=== PATIENT | male | born 1955 | race African-American/Black ===

== ENCOUNTER 2017-12-19 18:42 | Emergency (ER) | payer MEDICAID, OTHER ==
[~2017-12-19] VITALS: Ht 177.8 cm; Wt 61.0 kg
[~2017-12-19 18:42] MED LIST: ACET-3161 PO; LISI1TAB9 PO; METF500T4 PO; ROSU10TA PO
[2017-12-19] MEDS ORDERED: SODIUM CHLORIDE 0.9% 1,000 ML IV ONE (18:57)
[2017-12-19 20:30] LABS: BASOPHILS % 0.9 % (0.0-2.0); CHLORIDE 109 mEq/L (98-107); EOSINOPHILS % 2.4 % (0.0-5.0); HEMOGLOBIN. 10.9 g/dL (14.0-18.0); LYMPHOCYTES % 23.9 % (20.0-50.0); MEAN CORPUSCULAR HEMOGLOBIN 30.1 pg (28.0-32.0); MEAN CORPUSCULAR VOLUME 90.9 fL (80.0-94.0); MEAN PLATELET VOLUME 7.7 fl (7.4-10.4); MONOCYTES % 6.8 % (2.0-8.0); PLATELET 464 x1000/uL (130-400); RED BLOOD CELL COUNT 3.63 mill/uL (4.7-6.1); RED CELL DISTRIBUTION WIDTH 14.4 % (11.6-14.6)
[2017-12-19 20:31] LABS: INR 1.1
[2017-12-19 20:35] LABS: ETHANOL BLOOD < 10 mg/dL
[2017-12-19 21:58] VITALS: BP 110/80
== END 2017-12-19 22:25 | disposition home or self-care (01) ==
LOC: ER 19:14
DX: G43.A0 Cyclical vomiting, in migraine, not intractable (principal); E11.9 Type 2 diabetes mellitus without complications; F12.10 Cannabis abuse, uncomplicated; I10 Essential (primary) hypertension; Z98.890 Other specified postprocedural states
CPT/HCPCS: 36415; 71045; 80053; 83690; 84484; 85025; 85610; 93005; 96360; 96361; 99285; G0482

== ENCOUNTER 2018-03-31 11:14 | Inpatient (IN) | payer OTHER ==
[2018-03-31] VITALS (10 sets, daily range): BP systolic 62–130; BP diastolic 47–67
[~2018-03-31] VITALS: Ht 177.8 cm; Wt 60.8 kg
[~2018-03-31 11:14] MED LIST changes: -METF500T4 PO; +METF500T6 PO
[2018-03-31] MEDS ORDERED: MORPHINE SULFATE 4 MG/ML CPJ (NOT FOR IM USE) IV STA (12:21)
[2018-03-31] MEDS ORDERED: ONDANSETRON HCL 4MG/2ML VIAL IV STA (12:21)
[2018-03-31] MEDS ORDERED: SODIUM CHLORIDE 0.9% 1000ML BAG (SEPSIS BOLUS) IV ONE (12:30)
[2018-03-31] MEDS ORDERED: LEVOFLOXACIN 750MG PREMIX 150 ML IV ONE (12:30)
[2018-03-31 13:39] LABS: BASOPHILS % 0.8 % (0.0-2.0); EOSINOPHILS % 1.1 % (0.0-5.0); HEMATOCRIT. 29.8 % (42.0-52.0); HEMOGLOBIN. 9.9 g/dL (14.0-18.0); LYMPHOCYTES % 20.3 % (20.0-50.0); MEAN CORPUSCULAR HEMOGLOBIN 30.4 pg (28.0-32.0); MEAN CORPUSCULAR VOLUME 91.7 fL (80.0-94.0); MEAN PLATELET VOLUME 8.4 fl (7.4-10.4); MONOCYTES % 6.8 % (2.0-8.0); PLATELET 568 x1000/uL (130-400); RED BLOOD CELL COUNT 3.25 mill/uL (4.7-6.1); RED CELL DISTRIBUTION WIDTH 16.2 % (11.6-14.6)
[2018-03-31 13:40] LABS: CHLORIDE 110 mEq/L (98-107)
[2018-03-31 15:16] LABS: CLARITY URINE CLOUDY (CLEAR); COLOR URINE YELLOW (YELLOW); KETONES URINE NEGATIVE (NEGATIVE); LEUKOCYTE ESTERASE URINE 3+ (NEGATIVE); NITRITE URINE NEGATIVE (NEGATIVE); OCCULT BLOOD URINE 1+ (NEGATIVE); PH URINE 5.5 (4.5-8.0); PROTEIN URINE 1+ (NEGATIVE); SPECIFIC GRAVITY URINE 1.012 (1.005-1.030); UROBILINOGEN URINE 0.2 E.U./dL (0.2-1.0)
[2018-03-31] MEDS ORDERED: ASPIRIN 325MG EC TABLET PO ONE (16:15)
[2018-03-31 16:43] LABS: INR 1.2; PARTIAL THROMBOPLASTIN TIME 27.1 sec (23.4-31.0); PROTHROMBIN TIME 11.7 sec (9.1-11.1)
[2018-03-31] MEDS ORDERED: ACETAMINOPHEN 650MG/20.3ML UDC GT PRN (17:15)
[2018-03-31] MEDS ORDERED: ACETAMINOPHEN 650MG SUPP PR PRN (17:15)
[2018-03-31] MEDS ORDERED: GUAIFENESIN 200MG/10ML SUGAR FREE UDC PO PRN (17:15)
[2018-03-31] MEDS ORDERED: MAGNESIUM/ALUMINUM HYDROXIDE/SIMETHICONE 30ML UDC PO PRN (17:15)
[2018-03-31] MEDS ORDERED: DOCUSATE SODIUM 100MG CAPSULE PO PRN (17:15)
[2018-03-31 17:46] LABS: TOTAL IRON BINDING CAPACITY 290 ug/dL (250-450)
[2018-03-31 18:03] LABS: FOLIC ACID (FOLATE) SERUM 9.7 ng/mL (>5.38)
[2018-03-31] MEDS ORDERED: ONDANSETRON 4MG ODT PO PRN (18:05)
[2018-03-31] MEDS: SODIUM CHLORIDE 0.45% 1,000 ML IV SCH ×2 (19:04→22:04)
[2018-03-31] MEDS ORDERED: SODIUM CHLORIDE 0.9% 250 ML IV NR (23:00)
[2018-03-31] MEDS ORDERED: SODIUM CHLORIDE 0.9% 1,000 ML IV SCH (23:00)
[2018-03-31 23:02] LABS: BG BASE EXCESS -10.4 mmol/L (-2.0-2.0); BG CARBOXYHEMOGLOBIN 0.4 % (0.5-1.5); BG DEOXYHEMOGLOBIN 3.8 % (0.0-5.0); BG FRACTION INSPIRED OXYGEN 21; BG HCO3 ACT 15.7 mmol/L (22.0-26.0); BG METHEMOGLOBIN 0.2 % (0.0-1.5); BG OXYGEN SATURATION 96.2 % (92.0-98.5); BG OXYHEMOGLOBIN 95.6 % (94.0-97.0); BG PCO2 35.2 mmHg (35.0-45.0); BG PH 7.266 (7.350-7.450); BG PO2 87.1 mmHg (75.0-100.0); BG SAMPLE SITE RIGHT BRACHIAL; BG TOTAL HEMOGLOBIN 9.2 g/dL (12.0-18.0); BG VENT MODE ROOM AIR
[2018-03-31] MEDS ORDERED: DEXTROSE 50% WATER 50ML SYRINGE IV PRN (23:15)
[2018-03-31] MEDS: BLOOD SUGAR DIAGNOSTIC STRIP TEST SCH (23:30)
[2018-04-01] VITALS (48 sets, daily range): BP systolic 64–124; BP diastolic 16–76
[2018-04-01 00:48] LABS: CREATINE KINASE MB FRACTION 5.7 ng/mL (0.5-3.6)
[2018-04-01] MEDS ORDERED: POTASSIUM CHLORIDE 20MEQ/PACKET PO NR (01:30)
[2018-04-01] MEDS: PIPERACILLIN/TAZ 2.25G PREMIX 50 ML IV SCH ×3 (01:41→17:52)
[2018-04-01] MEDS: SODIUM CHL 0.45% + KCL 20MEQ/L 1,000 ML IV SCH ×5 (03:32→22:50)
[2018-04-01 05:41] LABS: BASOPHILS % 0.4 % (0.0-2.0); EOSINOPHILS % 2.3 % (0.0-5.0); HEMATOCRIT. 24.6 % (42.0-52.0); LYMPHOCYTES % 20.8 % (20.0-50.0); MEAN CORPUSCULAR HEMOGLOBIN 29.8 pg (28.0-32.0); MEAN PLATELET VOLUME 7.7 fl (7.4-10.4); MONOCYTES % 7.6 % (2.0-8.0); NEUTROPHILS % 68.9 % (40.0-76.0); PLATELET 454 x1000/uL (130-400); RED CELL DISTRIBUTION WIDTH 15.6 % (11.6-14.6)
[2018-04-01 05:52] LABS: AMMONIA 31 uMol/L (<32)
[2018-04-01 05:58] LABS: PHOSPHORUS 1.4 mg/dL (2.5-4.9)
[2018-04-01 06:00] LABS: T4 FREE 0.9 ng/dL (0.76-1.46)
[2018-04-01 06:03] LABS: CREATINE KINASE MB FRACTION 5.5 ng/mL (0.5-3.6)
[2018-04-01] MEDS: ACETAMINOPHEN 325MG TABLET PO PRN (06:11)
[2018-04-01] MEDS ORDERED: POTASSIUM CHLORIDE 20MEQ TABLET SR PO NR (07:15)
[2018-04-01] MEDS: INSULIN LISPRO 100 UNITS/ML SUBCUT SCH ×4 (07:34→21:00)
[2018-04-01] MEDS ORDERED: POTASSIUM PHOS,M-BASIC-D-BASIC 30 MMOL in SODIUM CHLORIDE 0.9% 500 ML IV NR (09:00)
[2018-04-01] MEDS: CITRIC ACID/SODIUM CITRATE SOLN 30ML UDC PO SCH ×3 (09:31→17:52)
[2018-04-01] MEDS: BLOOD SUGAR DIAGNOSTIC STRIP TEST SCH ×3 (12:50→21:00)
[2018-04-01 13:10] LABS: CHLORIDE 115 mEq/L (98-107)
[2018-04-01 13:17] LABS: PHOSPHORUS 1.6 mg/dL (2.5-4.9)
[2018-04-01 14:36] LABS: AMYLASE 114 IU/L (25-115)
[2018-04-01 15:13] LABS: *AMPHETAMINES SCREEN URINE NEGATIVE (NEGATIVE); *BARBITURATES SCREEN URINE NEGATIVE (NEGATIVE); *BENZODIAZEPINES SCREEN URINE NEGATIVE (NEGATIVE)
[2018-04-01 15:14] LABS: *COCAINE SCREEN URINE NEGATIVE (NEGATIVE); CANNABINOID URINE SCREEN PRESUMTIVE POSITIVE (NEGATIVE); METHADONE URINE SCREEN NEGATIVE (NEGATIVE); OPIATES URINE SCREEN NEGATIVE (NEGATIVE); PHENCYCLIDINE URINE SCREEN NEGATIVE (NEGATIVE)
[2018-04-01] MEDS: POTASSIUM-SODIUM PHOSPHATE POWDER PACKET PO SCH (17:52)
[2018-04-01 19:53] LABS: AMYLASE 147 IU/L (25-115)
[2018-04-01 19:56] LABS: TOTAL IRON BINDING CAPACITY 187 ug/dL (250-450)
[2018-04-01] MEDS: ATORVASTATIN CALCIUM 10MG TABLET PO SCH (21:00)
[2018-04-01] MEDS: POTASSIUM CHLORIDE 20MEQ TABLET SR PO SCH (21:00)
[2018-04-02] VITALS (51 sets, daily range): BP systolic 38–166; BP diastolic 16–80
[2018-04-02] MEDS: PIPERACILLIN/TAZ 2.25G PREMIX 50 ML IV SCH ×2 (03:06→11:00)
[2018-04-02] MEDS: SODIUM CHL 0.45% + KCL 20MEQ/L 1,000 ML IV SCH ×4 (03:06→18:55)
[2018-04-02 05:47] LABS: CHLORIDE 116 mEq/L (98-107)
[2018-04-02 05:52] LABS: AMMONIA 22 uMol/L (<32)
[2018-04-02] MEDS: INSULIN LISPRO 100 UNITS/ML SUBCUT SCH ×4 (07:50→21:00)
[2018-04-02] MEDS: BLOOD SUGAR DIAGNOSTIC STRIP TEST SCH ×4 (07:50→21:34)
[2018-04-02] MEDS: ACETAMINOPHEN 325MG TABLET PO PRN ×2 (08:06→23:07)
[2018-04-02] MEDS: CITRIC ACID/SODIUM CITRATE SOLN 30ML UDC PO SCH ×3 (09:00→17:18)
[2018-04-02] MEDS: POTASSIUM-SODIUM PHOSPHATE POWDER PACKET PO SCH ×2 (09:00→17:18)
[2018-04-02] MEDS: POTASSIUM CHLORIDE 20MEQ TABLET SR PO SCH (09:00)
[2018-04-02] MEDS ORDERED: CEFTRIAXONE 1 G PREMIX 50 ML IV SCH (11:30)
[2018-04-02] MEDS: CEFTRIAXONE 1 G PREMIX 50 ML IV SCH (15:06)
[2018-04-02] MEDS: ATORVASTATIN CALCIUM 10MG TABLET PO SCH (21:34)
[2018-04-03] VITALS (31 sets, daily range): BP systolic 84–128; BP diastolic 30–72
[2018-04-03] MEDS: SODIUM CHL 0.45% + KCL 20MEQ/L 1,000 ML IV SCH (05:19)
[2018-04-03 07:50] LABS: BASOPHILS % 0.9 % (0.0-2.0); EOSINOPHILS % 2.9 % (0.0-5.0); HEMATOCRIT. 23.5 % (42.0-52.0); HEMOGLOBIN. 7.9 g/dL (14.0-18.0); LYMPHOCYTES % 27.6 % (20.0-50.0); MEAN CORPUSCULAR HEMOGLOBIN 30.4 pg (28.0-32.0); MEAN CORPUSCULAR VOLUME 90.6 fL (80.0-94.0); MEAN PLATELET VOLUME 8.2 fl (7.4-10.4); MONOCYTES % 8.7 % (2.0-8.0); NEUTROPHILS % 59.9 % (40.0-76.0); PLATELET 449 x1000/uL (130-400); RED BLOOD CELL COUNT 2.59 mill/uL (4.7-6.1); RED CELL DISTRIBUTION WIDTH 15.9 % (11.6-14.6)
[2018-04-03] MEDS: INSULIN LISPRO 100 UNITS/ML SUBCUT SCH ×4 (07:50→21:00)
[2018-04-03 08:18] LABS: CHLORIDE 113 mEq/L (98-107)
[2018-04-03 08:31] LABS: PHOSPHORUS 1.1 mg/dL (2.5-4.9)
[2018-04-03] MEDS: BLOOD SUGAR DIAGNOSTIC STRIP TEST SCH ×4 (08:33→21:30)
[2018-04-03] MEDS: ACETAMINOPHEN 325MG TABLET PO PRN ×2 (08:42→21:26)
[2018-04-03] MEDS: CITRIC ACID/SODIUM CITRATE SOLN 30ML UDC PO SCH ×3 (08:42→17:26)
[2018-04-03] MEDS: POTASSIUM-SODIUM PHOSPHATE POWDER PACKET PO SCH ×2 (09:00→17:26)
[2018-04-03] MEDS ORDERED: SODIUM PHOS,M-BASIC-D-BASIC 30 MM in DEXT 5% WATER 500 ML IV NR (10:00)
[2018-04-03] MEDS: CEFTRIAXONE 1 G PREMIX 50 ML IV SCH (13:20)
[2018-04-03] MEDS: ATORVASTATIN CALCIUM 10MG TABLET PO SCH (21:26)
[2018-04-04] VITALS (13 sets, daily range): BP systolic 86–112; BP diastolic 45–80
[2018-04-04] MEDS: BLOOD SUGAR DIAGNOSTIC STRIP TEST SCH ×4 (07:08→21:29)
[2018-04-04] MEDS: INSULIN LISPRO 100 UNITS/ML SUBCUT SCH ×4 (07:09→21:00)
[2018-04-04 07:59] LABS: CHLORIDE 112 mEq/L (98-107)
[2018-04-04 08:06] LABS: PHOSPHORUS 2.7 mg/dL (2.5-4.9)
[2018-04-04 08:08] LABS: BASOPHILS % 1.2 % (0.0-2.0); EOSINOPHILS % 2.1 % (0.0-5.0); HEMATOCRIT. 25.5 % (42.0-52.0); HEMOGLOBIN. 8.7 g/dL (14.0-18.0); LYMPHOCYTES % 27.5 % (20.0-50.0); MEAN CORPUSCULAR HEMOGLOBIN 30.5 pg (28.0-32.0); MEAN CORPUSCULAR VOLUME 90.1 fL (80.0-94.0); MEAN PLATELET VOLUME 7.9 fl (7.4-10.4); NEUTROPHILS % 61.2 % (40.0-76.0); PLATELET 503 x1000/uL (130-400); RED BLOOD CELL COUNT 2.84 mill/uL (4.7-6.1); RED CELL DISTRIBUTION WIDTH 15.4 % (11.6-14.6)
[2018-04-04] MEDS: CITRIC ACID/SODIUM CITRATE SOLN 30ML UDC PO SCH ×2 (08:52→17:37)
[2018-04-04] MEDS: POTASSIUM-SODIUM PHOSPHATE POWDER PACKET PO SCH ×2 (08:52→17:37)
[2018-04-04] MEDS ORDERED: HYDROCODONE/ACETAMINOPHEN 5/325MG TABLET PO PRN (09:00)
[2018-04-04] MEDS: CEFTRIAXONE 1 G PREMIX 50 ML IV SCH (12:56)
[2018-04-04] MEDS: ACETAMINOPHEN 325MG TABLET PO PRN (13:48)
[2018-04-04] MEDS: ATORVASTATIN CALCIUM 10MG TABLET PO SCH (21:26)
[2018-04-05] VITALS (10 sets, daily range): BP systolic 91–110; BP diastolic 37–72
[2018-04-05] MEDS: ACETAMINOPHEN 325MG TABLET PO PRN (06:37)
[2018-04-05] MEDS: INSULIN LISPRO 100 UNITS/ML SUBCUT SCH ×4 (07:30→21:00)
[2018-04-05 07:34] LABS: BASOPHILS % 0.9 % (0.0-2.0); EOSINOPHILS % 2.5 % (0.0-5.0); HEMOGLOBIN. 8.7 g/dL (14.0-18.0); LYMPHOCYTES % 30.9 % (20.0-50.0); MEAN CORPUSCULAR HEMOGLOBIN 30.3 pg (28.0-32.0); MEAN CORPUSCULAR VOLUME 90.4 fL (80.0-94.0); MEAN PLATELET VOLUME 7.7 fl (7.4-10.4); NEUTROPHILS % 56.7 % (40.0-76.0); PLATELET 504 x1000/uL (130-400); RED BLOOD CELL COUNT 2.88 mill/uL (4.7-6.1); RED CELL DISTRIBUTION WIDTH 15.5 % (11.6-14.6)
[2018-04-05] MEDS: BLOOD SUGAR DIAGNOSTIC STRIP TEST SCH ×4 (07:38→21:44)
[2018-04-05 07:47] LABS: CHLORIDE 110 mEq/L (98-107)
[2018-04-05 07:52] LABS: PHOSPHORUS 2.3 mg/dL (2.5-4.9)
[2018-04-05] MEDS: POTASSIUM-SODIUM PHOSPHATE POWDER PACKET PO SCH ×2 (08:40→17:15)
[2018-04-05] MEDS: CITRIC ACID/SODIUM CITRATE SOLN 30ML UDC PO SCH ×2 (08:40→17:14)
[2018-04-05] MEDS: CEFTRIAXONE 1 G PREMIX 50 ML IV SCH (13:22)
[2018-04-05 14:06] LABS: LDL CHOLESTEROL 24 mg/dL (5-100)
[2018-04-05 14:08] LABS: HDL CHOLESTEROL 22 mg/dL (40-59)
[2018-04-05] MEDS ORDERED: POTASSIUM PHOS,M-BASIC-D-BASIC 20 MMOL in DEXT 5% WATER 243.3333 ML IV NR (14:30)
[2018-04-05] MEDS: ATORVASTATIN CALCIUM 10MG TABLET PO SCH (21:43)
[2018-04-06] VITALS (8 sets, daily range): BP systolic 90–107; BP diastolic 45–73
[2018-04-06 06:20] LABS: BASOPHILS % 1.1 % (0.0-2.0); HEMATOCRIT. 24.7 % (42.0-52.0); HEMOGLOBIN. 8.3 g/dL (14.0-18.0); MEAN CORPUSCULAR HEMOGLOBIN 30.6 pg (28.0-32.0); MEAN CORPUSCULAR VOLUME 90.9 fL (80.0-94.0); MEAN PLATELET VOLUME 8.2 fl (7.4-10.4); MONOCYTES % 9.9 % (2.0-8.0); PLATELET 480 x1000/uL (130-400); RED BLOOD CELL COUNT 2.72 mill/uL (4.7-6.1); RED CELL DISTRIBUTION WIDTH 15.4 % (11.6-14.6)
[2018-04-06 06:38] LABS: CHLORIDE 109 mEq/L (98-107)
[2018-04-06 06:52] LABS: PHOSPHORUS 3.3 mg/dL (2.5-4.9)
[2018-04-06] MEDS: INSULIN LISPRO 100 UNITS/ML SUBCUT SCH ×2 (07:30→11:52)
[2018-04-06] MEDS: BLOOD SUGAR DIAGNOSTIC STRIP TEST SCH ×2 (08:29→11:52)
[2018-04-06] MEDS: CITRIC ACID/SODIUM CITRATE SOLN 30ML UDC PO SCH (08:30)
[2018-04-06] MEDS: POTASSIUM-SODIUM PHOSPHATE POWDER PACKET PO SCH (08:30)
== END 2018-04-06 13:20 | disposition home or self-care (01) | DRG 720 ==
LOC: ER 11:14 → 3WST 16:29 → ENRESERV 17:05 → 3WST 18:07 → CVICU 21:16 → 5EST 04-03 10:55
PROVIDERS: ADMIT Internal Medicine; ATTEND Internal Medicine
DX: A41.9 Sepsis, unspecified organism (principal); I63.9 Cerebral infarction, unspecified; R65.21 Severe sepsis with septic shock; G93.40 Encephalopathy, unspecified; E87.2 Acidosis; I95.9 Hypotension, unspecified; E46 Unspecified protein-calorie malnutrition; N17.9 Acute kidney failure, unspecified; N18.3 Chronic kidney disease, stage 3 (moderate); E11.22 Type 2 diabetes mellitus with diabetic chronic kidney disease; E83.39 Other disorders of phosphorus metabolism; M48.02 Spinal stenosis, cervical region; E87.6 Hypokalemia; D64.9 Anemia, unspecified; H91.10 Presbycusis, unspecified ear; M47.816 Spondylosis without myelopathy or radiculopathy, lumbar region; M43.16 Spondylolisthesis, lumbar region; N39.0 Urinary tract infection, site not specified; D63.8 Anemia in other chronic diseases classified elsewhere; E78.5 Hyperlipidemia, unspecified; F12.90 Cannabis use, unspecified, uncomplicated; F17.200 Nicotine dependence, unspecified, uncomplicated; I12.9 Hypertensive chronic kidney disease with stage 1 through stage 4 chronic kidney disease, or unspecified chronic kidney disease; H91.90 Unspecified hearing loss, unspecified ear; G89.29 Other chronic pain; M54.9 Dorsalgia, unspecified; I44.0 Atrioventricular block, first degree; R29.6 Repeated falls; Z82.49 Family history of ischemic heart disease and other diseases of the circulatory system; Z83.3 Family history of diabetes mellitus; Z79.899 Other long term (current) drug therapy; Z79.4 Long term (current) use of insulin; Z68.1 Body mass index [BMI] 19.9 or less, adult
CPT/HCPCS: 36415; 36600; 70450; 71045; 72100; 72125; 73502; 74018; 76705; 76770; 80048; 80053; 80061; 80305; 81003; 82140; 82150; 82270; 82375; 82550; 82553; 82607; 82728; 82746; 82805; 82962; 83036; 83540; 83550; 83605; 83690; 83735; 83880; 84100; 84134; 84145; 84439; 84443; 84481; 84484; 85025; 85379; 85610; 85730; 86850; 86900; 87040; 87077; 87086; 87186; 92610; 93005; 93306; 93880; 93970; 96365; 96375; 97110; 97116; 97163; 97166; 97530; 99285; J0696; J1815; J1956; J2270; J2405; J2543; J3480; J3490; J7030; J7040; J7050; J7060; L0172; Q0162